=== PATIENT | male | born 1935 | race Caucasian/White ===

== ENCOUNTER 2017-02-26 16:58 | Observation (INO) | payer MEDICARE, OTHER ==
[~2017-02-26] VITALS: Ht 188 cm; Wt 82.1 kg
[2017-02-26] VITALS (9 sets, daily range): BP systolic 97–147; BP diastolic 45–77; PULSE 55–76; RESP 15–20; O2SAT 97–98
[~2017-02-26 16:58] MED LIST: ATOR80TA PO; CLOP75TA3 PO; LISI30TA5 PO; RANI150C4 PO
--- NOTE | 2017-02-26 17:10 | ED.REPORT ---
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 He states that he was cleaning his gutters about 4-5 hours ago, and felt fatigued when he stopped. He then went in to eat and felt lightheaded so he went to lay down. His states that his blood pressure was 115/51, and went down to 80/51 after laying down for 20 minutes. His lisinopril was increased to 40 mg about 10 days ago for his hypertension. Pt denies cough, headache, SOB, chest pain, dysuria, fever, chills, or abdominal pain. He states that he didn't drink much today, but he wasn't thirsty. Nursing Notes Stated Complaint: LOW BP/REF DR WYATT Chief Complaint: Neuro Symptoms/ Deficits Nursing Notes Reviewed: Yes Allergies: Coded Allergies: Penicillins (Verified Allergy, Unknown, rash, 02/26/17) oxycodone (Verified Allergy, Unknown, 02/26/17) metoprolol (Verified Adverse Reaction, Unknown, increased bradycardia, ) Scheduled Atorvastatin (Lipitor) 80 Mg Tablet 80 MG PO DAILY Clopidogrel Bisulfate (Plavix) 75 Mg Tablet 75 MG PO DAILY last dose 05/16 Lisinopril (Lisinopril) 30 Mg Tablet 30 MG PO DAILY Ranitidine (Ranitidine) 150 Mg Capsule 150 MG PO DAILY General Time Seen by MD: 17:09 Chief Complaint Weakness Hx Obtained From: Patient, Spouse Arrived By: Walk-in Sudden in Onset?: Yes Onset Occurred: 1 - 4 hours ago Symptom Duration: Constant Quality: Painful Severity: Current: Mild Severity: Maximum: Moderate Recent Healthcare: Recent doctor visit Similar Sx Previous: No Past Medical History Past Medical History 1. Low back pain 2. GI bleed. 3. History of colonoscopy. Normal colonoscopy. Previously element of diverticulosis. 4. GERD. 5. Hypertension. 6. Diaphragmatic hernia. 7. Hyperlipidemia. 8. Thrombophlebitis. 9. TIA x3 Past Surgical History Colonoscopy Family History Noncontributory Smoking History Never Smoker Social History Other Social History: , Local resident Ambulatory Status Independent Review of Systems Full Review of Systems Constitutional: Reports: Fatigue, Weakness - generalized, Denies: Chills, Fever Respiratory: Denies: Non-productive cough, Prod cough, clear, Shortness of breath Cardiovascular: Denies: Chest pain GI: Denies: Abdominal pain Male: Denies Dysuria Neurologic: Reports: Lightheaded Complete sys rev & neg: except as marked. Physical Exam Vital Signs Vital Signs Date Time Temp Pulse Resp B/P Pulse Ox O2 Delivery O2 Flow Rate FiO2 02/26/17 17:42 15 97/45 98 Room Air 02/26/17 17:03 36.8 65 16 138/75 97 Room Air Initial VS: Reviewed Head / Eyes: Atraumatic, Normocephalic ENT: Mucous membranes moist, Conjunctiva normal Neck: Supple, Full range of motion Abdomen / GI: Soft, Non-tender Extremities: Vascular intact, Neuro intact, No swelling, No tenderness Skin: Warm, Dry, No cyanosis Neurologic: Alert, Oriented, Nonfocal Psychiatric: Mood/affect normal, Behavior normal, Normal thought content General/Constitutional: Awake, Alert Head / Eyes: Atraumatic, Normocephalic, PERRL, EOMI Respiratory / Chest: Atraumatic, Breath sounds NL, Breath sounds = bilat, No respiratory distress Cardiovascular: Heart rate NL, Regular rhythm, Heart sounds NL, No murmurs Heart Rate / Rhythm: Negative: Tachycardia No lower leg edema Neurologic: Oriented X3, Speech NL, No motor deficits, No sensory deficits No facial droop Interpretation & Diagnostics Lab Results Interpretation Result Diagram: 02/26/17 1728 02/26/17 1728 Test 02/26/17 17:28 White Blood Count 11.8th/mm3 (3.8-10.1) Red Blood Count 4.77mil/mm3 (4.40-5.80) Hemoglobin 15.3g/dL (13.8-17.2) Hematocrit 44.2% (41.0-50.0) Mean Corpuscular Volume 92.7fL (81-100) Mean Corpuscular Hemoglobin 32.1pg (27.0-35.0) Mean Corpuscular Hemoglobin Concent 34.6% (32.0-37.0) Red Cell Distribution Width 12.9% (12.3-15.4) Platelet Count 196bil/L (150-400) Neutrophils (%) (Auto) 74.9% (40-74) Lymphocytes (%) (Auto) 16.9% (14-46) Monocytes (%) (Auto) 6.6% (4-12) Eosinophils (%) (Auto) 0.8% (0-5) Basophils (%) (Auto) 0.5% (0-3) Sodium Level 137mEq/L (134-144) Potassium Level 4.3mEq/L (3.5-5.2) Chloride Level 99mEq/L (97-108) Carbon Dioxide Level 21mmol/L (18-29) Blood Urea Nitrogen 30mg/dL (8-27) Creatinine 1.41mg/dL (0.76-1.27) Estimat Glomerular Filtration Rate 52mL/min (>59) Glucose Level 193mg/dL (60-99) Calcium Level 9.4mg/dL (8.5-10.1) Magnesium Level 2.0mg/dL (1.6-2.6) Total Bilirubin 0.7mg/dL (0.0-1.2) Aspartate Amino Transf (AST/SGOT) 28U/L (0-50) Alanine Aminotransferase (ALT/SGPT) 36U/L (0-44) Alkaline Phosphatase 78U/L (25-160) Troponin T < 0.010ug/L (0.0-0.011) Total Protein 7.3g/dL (6.4-8.4) Albumin 4.3g/dL (3.4-5.0) Hold Mae Top Tube Received (Received) ECG Interpretation ECG Interpretation: Sinus rhythm, rate 64 Second degree AV block, type II PRN interval is 254 Time: 17:15 Interpreted by: ED physician X-Ray Chest Interpretation Chest Xray Interpretation: IMPRESSION: No radiographic evidence of acute cardiopulmonary pathology. Dictated by: Zay Santizo M.D. on 02/26/2017 at 17:47 Approved by: Zay Santizo M.D. on 02/26/2017 at 17:48 View: Portable, 1 view Interpretation / Wet Read by: Interpret - Radiologist Re-Eval/Medical Decision Source of Hx: Old records Time of Eval: 19:20 Re-Evaluation/Progress Note: Pt rechecked. Discussed EKG results and plan for admission. Pt understands and agrees with plan. All questions addressed. Consultation #1: Referral / Consult Name: Jamir Montiel MD Consulted With: Cardiology Call Returned at: 19:14 Solar Energy Sales Specialist: Agrees with eval, Agrees with plan Note: Discussed pt's case with senior environmental scientist, Dr. Montiel. He recommends starting a beta emy and will look at EKG. Consultation #2: Referral / Consult Name: Chayo Mejia DO Consulted With: Hospitalist Call Returned at: 19:26 Solar Energy Sales Specialist: Will see patient, Agrees with plan, Accepts admit Note: Discussed pt's case with hospitalist, Dr. Mejia. She accepts admission. Consultation #3: Referral / Consult Name: Jamir Montiel MD Consulted With: Cardiology Call Returned at: 19:32 Solar Energy Sales Specialist: Agrees with eval, Agrees with plan Note: Dr. Montiel called back and stated that it was only a first degree AV block, but still thinks he should be admitted. Counseled Regarding: Diagnosis, Lab results, Need for admission Discharge & Departure Primary Impression: Pre-syncope Additional Impressions: Acute kidney injury Leukocytosis Leukocytosis type: unspecified Qualified Code: D72.829 - Elevated white blood cell count, unspecified Hyperglycemia AV block, 1st degree Disposition: ADMITTED TO HOSPITAL Discharge Condition All VS Reviewed: Yes Condition: Stable Referrals: Shanique Wyatt DO (PCP) Scribe Attestation Portions of this note were transcribed by Laney Tate. I, Dr. John, personally performed the history, physical exam and medical decision-making; I reviewed and confirmed the accuracy of the information in the transcribed note. copies to: Shanique Wyatt Gary R DO Feb 26, 2017 17:10 Laney Tate Feb 26, 2017 18:00
[2017-02-26 17:36] LABS: BASOPHILS % (AUTO) 0.5 % (0-3); EOSINOPHILS % (AUTO) 0.8 % (0-5); MONOCYTES % (AUTO) 6.6 % (4-12); Mean Corpuscular Hemoglobin 32.1 pg (27.0-35.0); Mean Corpuscular Volume 92.7 fL (81-100); NEUTROPHILS % (AUTO) 74.9 % (40-74); Platelet Count 196 bil/L (150-400)
--- NOTE | 2017-02-26 17:50 | DRSVH ---
PROCEDURE: X-RAY CHEST ONE VIEW, PORTABLE ([id number]) INDICATIONS: hypotension TECHNIQUE: One view of the chest was acquired. COMPARISON: , , CHEST 1VW (PORTABLE), 03/09/2012, 17:34. FINDINGS: Surgical changes and devices: None. Lungs and pleura: No pleural effusions or pneumothorax. Lungs are clear. Mediastinum: Mediastinal contours appear normal. Heart size is normal. Bones and chest wall: No suspicious bony lesions. Overlying soft tissues appear unremarkable. IMPRESSION: No radiographic evidence of acute cardiopulmonary pathology. Dictated by: Zay Santizo M.D. on 02/26/2017 at 17:47 Approved by: Zay Santizo M.D. on 02/26/2017 at 17:48
[2017-02-26] MEDS ORDERED: 0.9% Sodium Chloride 1,000 ML IV ONE (17:54)
[2017-02-26 17:58] LABS: TROPONIN T < 0.010 ug/L (0.0-0.011)
[2017-02-26] MEDS ORDERED: LidocaineVisc 2%:Antacid 1:1 10 mL Syringe PO ONE (19:25)
[2017-02-26] MEDS ORDERED: LISI40TA PO (19:49)
[2017-02-26] MEDS ORDERED: Ondansetron 2 mg/mL 2 mL Inj IVPUSH PRN (19:55)
[2017-02-26] MEDS ORDERED: Polyethylene Glycol (PEG) 17 Gm Powder PO PRN (19:55)
[2017-02-26] MEDS ORDERED: Alum-Mag Hydrox-Simeth 30 mL Suspension PO PRN (19:55)
--- NOTE | 2017-02-26 21:12 | PCM.HPMED ---
Subjective Date of Service Feb 26, 2017 Primary Provider: Admitting Physician: Amanda Alexander MD Primary Care Physician: Shanique Wyatt DO Attending Physician: Amanda Alexander MD Admit Status: From the Emergency Department, 23-Hour Observation Chief Complaint: Near syncope. History of Present Illness: Radha Patel is a 81-year-old male with a past medical history significant for hypertension, hyperlipidemia, TIA 3 on Plavix, and GERD who presented to [facility] emergency Department complaining of lightheadedness. The patient reports he was outside all day cleaning his gutters for approximately 5-6 hours. He reports that he did not drink any fluid during this time. He then went inside and sat down to have dinner with his when he began to feel lightheaded and as though he may pass out. He immediately stopped eating and went into the bedroom and laid down. Per the ER physician, his states that his blood pressure was 115/51 and went down to 80/51 after laying down for 20 minutes. He then went to his PCPs office who sent him to the ED. His lisinopril was increased to 40 mg about 10 days ago for his hypertension. He denies headache, vision changes, sore throat, cough, chest pain, shortness of breath, abdominal pain, nausea, vomiting, fever, chills, dysuria diarrhea, constipation. Vital signs in the ER: Temperature 36.8. Pulse 65. Respiratory rate 16. Blood pressure 138/75. Pulse ox 97% room air. He received a GI cocktail and 1 L of NS in the ED. PCP is Dr. Shanique Wyatt. Review of Systems: A comprehensive review of systems was conducted with the patient and found to be negative except as above in the History of Present Illness. . Allergies Coded Allergies: Penicillins (Verified Allergy, Unknown, rash, 02/26/17) oxycodone (Verified Allergy, Unknown, 02/26/17) metoprolol (Verified Adverse Reaction, Unknown, increased bradycardia, ) Home Medications Atorvastatin 80 mg daily at bedtime. Clopidogrel 75 mg daily at bedtime. Lisinopril 40 mg daily at bedtime. Ranitidine 150 mg daily at bedtime. . PMH 1. 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 2. GERD. 3. Hypertension. 4. Hyperlipidemia. 5. TIA x3. 6. DJD. . Surgical History 1. Colonoscopy. 2. Lumbar L4-L5? surgery. 3. Cholecystectomy. 4. Bilateral cataract extraction. 5. Bilateral knee arthroscopy. . Family History Mother who from unknown cancer at 65 years old. Father who of old age. Brother who of prostate cancer at 70 years old. Brother with AICD who of a CVA in his 90's. . Social History Hx Alcohol Use: No Hx Substance Use: No Hx Tobacco Use: Yes Smoking Status: Former Smoker (1 PPD x 6 years) Additional Information The patient is x 34 years. He has previously . He has two daughters who are healthy. 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 He was born in [place]. . Exam Vital Signs Vital Sign - Last Date Time Temp Pulse Resp B/P Pulse Ox O2 Delivery O2 Flow Rate FiO2 02/26/17 19:33 55 17 119/50 98 Room Air 126/56 132/58 02/26/17 17:03 36.8 Exam General: Older gentleman lying in bed and in no acute distress, well-developed, well-nourished, appropriately interactive area HEENT: Normocephalic, atraumatic. External ears without defect. Pupils equal, round, and reactive to light. Anicteric sclerae, moist conjunctivae, and no lid lag. Oropharynx free of erythema and cobble stoning with moist mucosa. Neck: Supple with full range of motion. No jugular venous distension. No bruits. No lymphadenopathy or thyromegaly. Cardiovascular: Regular rate and rhythm without murmurs, rubs, or gallops appreciated Pulmonary: Clear to auscultation bilaterally without crackles, wheezes, or rhonchi. Normal respiratory effort with no use of accessory muscles. Abdomen: Soft, nontender, nondistended, bowel sounds present. No hepatosplenomegaly or masses appreciated. Extremities: No clubbing, cyanosis, or edema. Skin: Normal temperature, turgor, and texture; no rash, ulcers, or subcutaneous nodules appreciated. Neurological: Cranial nerves grossly intact. Normal muscle strength, tone, and bulk. Reflexes, coordination, and sensory function within normal limits. No known gait impairment. Psychiatric: Normal mood and affect. Alert and oriented to person, place, and time. . Lab and Diagnostics Labs Item Value Date Time Calcium Level 9.4 mg/dL 02/26/17 1728 Magnesium Level 2.0 mg/dL 02/26/17 1728 Total Bilirubin 0.7 mg/dL 02/26/17 1728 Aspartate Amino Transf (AST/SGOT) 28 U/L 02/26/17 1728 Alanine Aminotransferase (ALT/SGPT) 36 U/L 02/26/17 1728 Alkaline Phosphatase 78 U/L 02/26/17 1728 Troponin T < 0.010 ug/L 02/26/17 1728 Total Protein 7.3 g/dL 02/26/17 1728 Albumin 4.3 g/dL 02/26/17 1728 Result Diagram: 02/26/17 1728 02/26/17 172 X-Rays, CTs and MRIs X-RAY CHEST ONE VIEW, PORTABLE IMPRESSION: No radiographic evidence of acute cardiopulmonary pathology. Dictated by: Zay Santizo M.D. on 02/26/2017 at 17:47 . 12-lead ECG EKG: Sinus rhythm, heart rate 64, normal axis, second-degree AV block type I with FL interval of 254 ms with several dropped beats, otherwise normal intervals, normal R-wave progression, no pathological Q waves or acute ischemic changes such as ST elevation or depression. . Assessment & Plan Radha Patel is a 81-year-old male with a past medical history significant for hypertension, hyperlipidemia, TIA 3 on Plavix, and GERD who presented to [facility] emergency Department complaining of lightheadedness. 1. Near syncope, present on admission. Active. - Patient presented after a near syncopal episode. No history of seizures. - Differential diagnosis includes: Likely cardiac etiology from second-degree heart block type I versus hypotension secondary to dehydration and recent antihypertensive adjustment. - Ordered echocardiogram, pending. - Ordered orthostatic blood pressures, pending. - Ordered urinalysis with culture if indicated, pending. We will await results prior to initiation of antibiotics. - Electrolytes within normal limits. - Ordered TSH, pending. - EKG revealed second-degree heart block type I with FL interval of 254 ms per resident physician, Dr. Montiel, as above. - Continue to monitor on telemetry. - Received 1 L of NS in the ED. Continue IV fluid hydration with NS at 100 mL/ hr. - Ordered cardiology consult, Dr. Alexander, for day team to discuss tomorrow. 2. Acute kidney injury, present on admission. Active. - Likely secondary to prerenal azotemia from dehydration. - Patient's baseline creatinine 0.9. Initial creatinine 1.41. - Avoid nephrotoxins. - Ordered IV fluid hydration with NS at 100 mL/hr. Chronic problems: 3. GERD, present on admission. Stable. - Continue ranitidine 150 mg daily at bedtime. 4. Hypertension, present on admission. Stable. - Held lisinopril for now. May restart at lower dose tomorrow if he becomes hypertensive. 5. Hyperlipidemia, present on admission. Stable. - Continue atorvastatin 80 mg daily at bedtime. 6. History of TIA and thrombophlebitis. - Continue clopidogrel 75 mg daily at bedtime. PRN antiemetics: Zofran and Maalox. PRN bowel regimen: Senna and MiraLAX. PRN analgesics: Tylenol. Patient is admitted under observation status with expected length of stay less than 2 midnights due to severity of presenting symptoms, risk of adverse event, and complexity of treatment plan. . VTE Prophylaxis: Sub-Q Heparin (Unfractionated), SCDs Resuscitation Status: CPR: Attempt Resuscitation Attending Statement The patient was seen and examined together with house staff on 02/26/2017 and I agree with the history, exam and plan as outlined in the note above. copies to: Shanique Wyatt [place] M DO Feb 26, 2017 20:00 Chayo Mejia DO Feb 27, 2017 04:59
[2017-02-26] MEDS: 0.9% Sodium Chloride 1,000 ML IV SCH (21:18)
[2017-02-26 21:51] LABS: APPEARANCE,URINE CLEAR (CLEAR,HAZY); COLOR,URINE YELLOW (YELLOW); OCCULT BLOOD,URINE NEGATIVE (NEGATIVE); UROBILINOGEN,URINE NORMAL (NORMAL)
[2017-02-27] MEDS: Heparin 5,000 Unit/mL Inj SUBQ SCH ×3 (01:35→16:30)
[2017-02-27 01:40] VITALS: BP 122/67; PULSE 57; RESP 20; O2SAT 98
--- NOTE | 2017-02-27 03:32 | NUR ---
Admit Pt admitted to [facility] Rm 1028 from ER at 2044. Pt alert and oriented x4, Pt walked to bed with SBA due to previous symptoms of lightheadedness. Pt denies pain or nausea. Pt has history of chronic right LE weakness. AVENDAÑO. Orthostats done and negative. Pt placed on tele- SB 50s, 1st degree AV block with PACs. Pt placed on heart healthy diet. NS infusing at 100ml/hr. Pt watched the orientation video. Explained to pt to use call light to get up for safety. Cont to monitor.
[2017-02-27 05:25] VITALS: BP 124/69; PULSE 55; RESP 20; O2SAT 97
[2017-02-27 07:31] LABS: BASOPHILS % (AUTO) 0.9 % (0-3); EOSINOPHILS % (AUTO) 2.8 % (0-5); MONOCYTES % (AUTO) 8.2 % (4-12); Mean Corpuscular Hemoglobin 32.6 pg (27.0-35.0); Mean Corpuscular Volume 94.4 fL (81-100); NEUTROPHILS % (AUTO) 56.6 % (40-74); Platelet Count 167 bil/L (150-400)
[2017-02-27 08:00] VITALS: BP 118/66; PULSE 54; RESP 18; O2SAT 96
[2017-02-27 08:06] LABS: Magnesium 2.1 mg/dL (1.6-2.6)
[2017-02-27] MEDS: 0.9% Sodium Chloride 1,000 ML IV SCH ×2 (08:38→15:55)
--- NOTE | 2017-02-27 09:10 | NUR ---
Social Work: Initial Assessment D: EMR reviewed. Please see Initial Assessment linked to this note for more information. Pt is a 81 year old male admitted [facility] for presyncope first degree, AV block per H&P. Pt's insurance is Medicare and [employer]. PCP is Shanique Wyatt DO. No SW orders have been received at this time. SW met with pt at bedside to conduct initial assessment. Pt was alert and oriented x3. SW explained role and wrote phone number on white board. SW provided [facility] Discharge Planning Checklist and encouraged pt to contact SW for any discharge planning questions. Pt lives at home with spouse in [place]. Pt is independent with all ADLs at baseline. Pt uses no DME at baseline. Pt drives. Pt has no HH or SNF history. Pt has no LTC or VA benefits. Pt has no DPOA on file, declined information related to this. Pt is likely to d/c home with spouse to transport via POV. SW will continue to follow. A: Pt who is independent at baseline and has the capacity for self-care. P: Pt anticipated to discharge home with spouse to transport via POV. No SW needs identified, no MD orders received at this time. SW will continue to follow for needs until time of discharge. SKYLER Mendoza Addendum: 02/27/17 at 0912 by YUE LOVE SS Amended: Links added.
[2017-02-27 09:13] VITALS: PULSE 51
--- NOTE | 2017-02-27 10:20 | PCM.PNMED ---
Subjective Date of Service Feb 27, 2017 Subjective Patient seen and examined. No complaints. Vitals stable. Exam Vital Signs Vital Sign - Last Date Time Temp Pulse Resp B/P Pulse Ox O2 Delivery O2 Flow Rate FiO2 02/27/17 09:13 51 02/27/17 08:00 36.6 18 118/66 96 Room Air Intake and Output 02/26/17 02/26/17 02/27/17 Cumulative From/Thru 15:00 23:00 07:00 02/26/17 17:03 - 02/27/17 05:20 Intake Total 1000 ml 708 ml 1708 ml Balance 1000 ml 708 ml 1708 ml IV Total 1000 ml 708 ml 1708 ml Exam General: Older gentleman sitting up in bed and in no acute distress, well- developed, well-nourished, appropriately interactive area Neck: Supple with full range of motion. No jugular venous distension. No bruits. No lymphadenopathy or thyromegaly. Cardiovascular: Regular rate and rhythm without murmurs, rubs, or gallops appreciated Pulmonary: Clear to auscultation bilaterally without crackles, wheezes, or rhonchi. Normal respiratory effort with no use of accessory muscles. Abdomen: Soft, nontender, nondistended, bowel sounds present. No hepatosplenomegaly or masses appreciated. Extremities: No clubbing, cyanosis, or edema. Skin: Normal temperature, turgor, and texture; no rash, ulcers, or subcutaneous nodules appreciated. . Lab and Diagnostics Result Diagram: 02/27/17 0657 02/27/17 0657 X-Rays, CTs and MRIs X-RAY CHEST ONE VIEW, PORTABLE IMPRESSION: No radiographic evidence of acute cardiopulmonary pathology. Dictated by: Zay Santizo M.D. on 02/26/2017 at 17:47 . 12-lead ECG EKG: Sinus rhythm, heart rate 64, normal axis, second-degree AV block type I with ME interval of 254 ms with several dropped beats, otherwise normal intervals, normal R-wave progression, no pathological Q waves or acute ischemic changes such as ST elevation or depression. . Assessment & Plan Radha Patel is a 81-year-old male with a past medical history significant for hypertension, hyperlipidemia, TIA 3 on Plavix, and GERD who presented to [facility] emergency Department complaining of lightheadedness. #. Near syncope, present on admission. Active. - Patient presented after a near syncopal episode. No history of seizures. - Differential diagnosis includes: Likely cardiac etiology from second-degree heart block type I versus hypotension secondary to dehydration and recent antihypertensive adjustment. - Ordered echocardiogram, pending. - Electrolytes within normal limits. - TSH: Subclinical hypothyroidism - EKG revealed second-degree heart block type I with ME interval of 254 ms per international logistics manager, Dr. Montiel, as above. - Continue to monitor on telemetry. - Received 1 L of NS in the ED. Continue IV fluid hydration with NS at 100 mL/ hr. - Dr. Alexander informed, to see the patient. #. Acute kidney injury, present on admission. Resolving - Likely secondary to prerenal azotemia from dehydration. - Patient's baseline creatinine 0.9. Initial creatinine 1.41. - Avoid nephrotoxins. - on IV fluid hydration with NS at 100 mL/hr. # Subclinical hypothyroidism - TSH elevated > 6.0, T4 lower limit of normal - will start on levothyroxine 25 mcg daily - outpatient follow up Chronic problems: #. GERD, present on admission. Stable. - Continue ranitidine 150 mg daily at bedtime. #. Hypertension, present on admission. Stable. - Held lisinopril for now. will restart once tyler resolves completely #. Hyperlipidemia, present on admission. Stable. - Continue atorvastatin 80 mg daily at bedtime. $. History of TIA and thrombophlebitis. - Continue clopidogrel 75 mg daily at bedtime. PRN antiemetics: Zofran and Maalox. PRN bowel regimen: Senna and MiraLAX. PRN analgesics: Tylenol. Patient is admitted under observation status with expected length of stay less than 2 midnights due to severity of presenting symptoms, risk of adverse event, and complexity of treatment plan. . VTE Prophylaxis: Sub-Q Heparin (Unfractionated), SCDs VTE Mechanical Devices: Intermittant Pneumatic CD Resuscitation Status: CPR: Attempt Resuscitation Time spent 35 mins Craig Esteves MD Feb 27, 2017 10:20
--- NOTE | 2017-02-27 10:41 | NUR ---
Case Management- MILES explained and signed/ timed by patient. Julia Dickinson RN, CCM
--- NOTE | 2017-02-27 13:14 | CONS ---
[address] [address] CONSULTATION REPORT PATIENT: RADHA LU : 1935 MR#: [id number] ADMIT: 02/26/2017 JOB ID: [id number] CARDIOLOGY CONSULTATION: DATE OF SERVICE: 02/27/2017 CHIEF COMPLAINT: I was asked by the hospitalist team to consult on this patient, given admission with presyncope. HISTORY OF PRESENT ILLNESS: This patient is 81-year-old man with past medical history significant for hypertension, hyperlipidemia. He has a history of TIAs and is on Plavix for this along with a statin. He is generally fairly active. 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 No problems with that, no chest pain, no shortness of breath. It was cool outside. He did not have much to drink, but finally quit for the day, went into eat dinner, was sitting down to eat dinner and suddenly felt near syncopal. His had him lie down. She checked his blood pressure which was low. He continued to lie down. She came back in to check the blood pressure; again was also felt to be low. Therefore, he was taken in the hospital. In the hospital, his initial blood pressure was low at 97/45. Orthostatics were negative. Heart rates were in the 50s to 60s. I am not sure if any fluids were given; however, the on-call clerk checker recommended starting beta emy. I am not sure if this was done. He has never had problems like this before. In general, he is quite active. Never had problems with chest pain, shortness of breath, orthopnea, PND, lower extremity edema. Does notice palpitations and had no problems with presyncope/syncope in the past. However, he does notice some orthostatic symptoms when he changes positions. This is not uncommon for him and he is aware of these potential symptoms. Currently is doing well. He denies any chest pain, shortness of breath, lightheadedness, dizziness. He had negative troponin. His TSH is mildly elevated. Free T4 is normal. PAST MEDICAL HISTORY/PROBLEM LIST: 1. History of TIAs. 2. 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 3. GERD. 4. Hypertension. 5. Hyperlipidemia. 6. DJD. MEDICATIONS: Outpatient medications include: 1. Atorvastatin 80 mg q.h.s. 2. Clopidogrel 75 daily. 3. Lisinopril 40 daily. 4. Ranitidine 150 mg q.h.s. ALLERGIES: 1. PENICILLIN. 2. OXYCODONE. 3. METOPROLOL, which apparently caused increased bradycardia. SOCIAL HISTORY: Former smoker. No significant alcohol use. FAMILY HISTORY: Brother had an AICD, history of stroke. He is not clear why the AICD was placed but his brother had a history of coronary disease. REVIEW OF SYSTEMS: Overall health: No fevers, chills, night sweats, or weight loss. GI: No problems with ulcers or blood in his stool. : Denies dysuria, hematuria. Pulmonary: No increased shortness of breath. Cardiac: As per HPI. Musculoskeletal: No acute joint issues. Derm: No acute issues or rashes, skin breakdown. Heme: No bruising or bleeding. Neuro: History of chronic headaches. History of TIAs. No acute vision changes. ENT: No acute hearing changes, difficulty swallowing. All other review of systems on a 12-point review system is negative. PHYSICAL EXAMINATION: Blood pressure is 141/76, heart rate 58; range of 50s to mid 60s. Sats are 97% on room air. General: In no acute distress. Speaking in full sentences without apparent shortness of breath. Head and neck exam: Normocephalic, atraumatic. Neck: No JV distention. Heart exam: Regular rate and rhythm. I do not appreciate murmurs, gallops, rubs appreciated. Lungs sound clear. Back: No CVA tenderness to palpation. Abdomen is soft, nontender. Extremities: Warm, no appreciable edema. 2+ distal pulses. Skin without breakdown appreciated. Neurologic: Alert and oriented x3. Sensory and gait not tested. Psych: Appropriate mood and affect. Ophthmo: Optical vision grossly intact. ENT: hearing intact. Mucous membranes moist. DIAGNOSTIC TESTING: EKG to my review shows sinus rhythm with supraventricular bigeminy. I went over telemetry and there were no significant pauses overnight. At 4:58 a.m., there was what looked like PAC couplet causing a 2.55 second pause,when the patient is sleeping. LABORATORY DATA: Sodium 139, potassium 4.7, chloride and bicarb 103 and 22, respectively. BUN and creatinine 26 and 1.01. Hematology shows a white count 6.7, H and H 14 and 40.6, platelets 167,000. IMAGING: Chest x-ray that shows no acute cardiopulmonary issues. IMPRESSION: This patient had an episode of near syncope. He has been out working all day and admits to not drinking much, although it was not warm and he did not feel thirsty. His blood pressure was low at home and in fact it his first measurement here was low; it is now normalized. He has some atrial bigeminy noticed and normal QRS interval and a prolonged MN interval. PLAN: 1. I think getting an echo is fine and we can see how that does. 2. As he has not had any symptoms like this in the past and we are not seeing any evidence of heart block on our telemetry, we can get the echo, we can have him walk around and make sure he is feeling well. If all this looks good and the patient feels well, we can do a monitor. If there is any additional concerns about heart rate response to activities, we could have him walk on a treadmill but will see how things unfold during the day. 60 minutes was spent with the patient reviewing his studies, discussing symptoms, reviewing telemetry and making recommendations MTDD
[2017-02-27 14:52] VITALS: BP 120/55; PULSE 50; RESP 18; O2SAT 96
[2017-02-27] MEDS ORDERED: LEVO25TA5 PO (15:16)
--- NOTE | 2017-02-27 15:17 | PCM.DIMED ---
Discharge Instructions Date of Service Feb 27, 2017 Dates of Hospitalization Feb 26, 2017 at 19:52 Discharge Diagnosis Discharge Diagnosis Pre syncope likely 2/2 dehydration Diet Discharge Diet: Heart Healthy Activity Discharge Activity: Limited until seen by PCP Call your provider Call your provider for: Chest pain, Excessive diarrhea Patient Instructions Follow-up with PCP in: 1 week (For an event/holter monitor , and hypothyroidism ) Craig Esteves MD Feb 27, 2017 15:17
--- NOTE | 2017-02-27 15:22 | DRSVH ---
Formerly [facility] [address] [place] [address] Echocardiogram Report Name: RADHA LU LStudy Viet e: 02/27/2017 Height: 74 in Hospital Exam Location: [facility] Weight: 181 lb Gender: Male BSA: 2.1 m2 : 1935 Age: 81 yrs BP: 128/69 mmHg Reason For Study: Light-Headedness/Pre-Syncope Ordering Physician: Performed By: Jazmin Adams Referring Physician: HOSPITALIST [facility] Interpretation Summary Normal sinus rhythm with occasional PAC's. Normal LV size, wall thickness; wall motion and LV systolic function. EF is 65-70%. Aortic sclerosis without stenosis. Otherwise no significant valvular abnormalities. Compared to prior study, previously observed bradycardia (with heart rates 47 -48 bpm ) is no longer seen. PAC's are new. Otherwise no changes have occurred. Procedure: A two-dimensional transthoracic echocardiogram with color flow and Doppler was performed. The study quality was technically difficult. Comparison is made with the echocardiogram of 03/10/2012. The heart rate ranged between 50-60 bpm during the study. Left Ventricle: The left ventricle is normal in size, wall thickness, and systolic function without any focal wall motion abnormalities. A false chord is noted (normal variant). The ejection fraction is estimated to be 65-70%. Right Ventricle: The right ventricle is normal in size, thickness and function. Atria: The left atrial size is normal. The right atrium is mildly dilated. The interatrial septum is intact with no evidence for an atrial septal defect. Mitral Valve: The mitral valve is normal. There is trace mitral regurgitation. Aortic Valve: The aortic valve is not well visualized. The aortic valve is mildly calcified. There is no aortic valve stenosis. No aortic regurgitation is present. Tricuspid Valve: The tricuspid valve is normal. There is a trace or physiologic amount of tricuspid regurgitation. Pulmonary artery pressures cannot be estimated because of the lack of a measurable TR jet velocity. Pulmonic Valve: The pulmonic valve is not well visualized. Great Vessels: The aortic root is normal size. The ascending aorta could not be visualized. The aortic arch is normal in size. The pulmonary is not well visualized. The IVC is of normal diameter and collapses greater than 50% with a sniff. This suggests a low right atrial pressure of 3 mm Hg. Pericardium/ Pleura There is no pericardial effusion. There is no pleural effusion. MMode/2D Measurements & Calculations LVIDd: 3.8 cm LVIDs: 2.7 cm LA A2 area: 18.9 cm FS: 30.5 % LA A4 area: 19.4 cm EPSS: 0.23 cm LA length (vol): 5.6 cm LVPWd: 0.85 cm LA vol: 55.1 ml LA vol index: 26.5 ml/m IVC diam: 1.6 cm RA long axis: 6.0 cm LVOT diam: 2.0 cm RA area: 21.3 cm AoV Openin.8 cm RA vol: 64.2 ml Ao root diam: 3.6 cm RA : 30.8 ml/m2 asc Aorta Diam: 2.5 cm Ao Arch Diam (Prox Trans): 2.8 cm LV smith. diameter/BSA (cm/m^2): 1.8 LV sys. diameter/BSA (cm/m^2): 1.3 RVD1 (basal): 5.0 cm TAPSE: 3.6 cm Doppler Measurements & Calculations Ao V2 max: 175.8 cm/sec MV E max juanjo: 74.7 cm/sec Ao max P.4 mmHg MV A max juanjo: 63.7 cm/sec Ao mean P.5 mmHg MV P1/2t: 92.8 msec LVOT Max Juanjo: 132.7 cm/sec KEVIN(I,D): 2.7 cm sev ratio: 0.83 MV E/A: 1.2 MV dec time: 0.31 sec Med Peak E' Juanjo: 8.7 cm/sec E/E' med: 8.6 Lat Peak E' Juanjo: 10.8 cm/sec E/E' lat: 6.9 E/e' average: 7.7 MV P1/2t max juanjo: 75.2 cm/sec Ao V2 mean: 130.7 cm/sec MVA(P1/2t): 2.4 cm2 Ao V2 VTI: 37.7 cm KEVIN(V,D): 2.4 cm2 LV V1 max P.1 mmHg KEVIN indexed to BSA (cm^2/m^2): 1.3 LV V1 VTI: 31.5 cm Reading Physician:03:21 PM
--- NOTE | 2017-02-27 15:27 | PCM.DC.MED ---
Discharge Summary Date of Service Feb 27, 2017 Dates of Hospitalization Date of Hospital Admission Feb 26, 2017 at 19:52 Date of Discharge: Feb 27, 2017 Providers: Admitting Physician: Chayo Mejia DO Primary Care Physician: Shanique Wyatt DO Attending Physician: Zay Dillon MD Diagnosis at Time of Discharge Diagnosis at Time of Discharge Pre syncope Procedures XRay, CTs & MRIs X-RAY CHEST ONE VIEW, PORTABLE IMPRESSION: No radiographic evidence of acute cardiopulmonary pathology. Dictated by: Zay Santizo M.D. on 02/26/2017 at 17:47 . ECG 12 Lead EKG: Sinus rhythm, heart rate 64, normal axis, second-degree AV block type I with IL interval of 254 ms with several dropped beats, otherwise normal intervals, normal R-wave progression, no pathological Q waves or acute ischemic changes such as ST elevation or depression. . Cardiac Echo Impression Interpretation Summary Normal sinus rhythm with occasional PAC's. Normal LV size, wall thickness; wall motion and LV systolic function. EF is 65-70%. Aortic sclerosis without stenosis. Otherwise no significant valvular abnormalities. Compared to prior study, previously observed bradycardia (with heart rates 47 -48 bpm ) is no longer seen. PAC's are new. Otherwise no changes have occurred. Brief History Radha Patel is a 81-year-old male with a past medical history significant for hypertension, hyperlipidemia, TIA 3 on Plavix, and GERD who presented to [facility] emergency Department complaining of lightheadedness. The patient reports he was outside all day cleaning his gutters for approximately 5-6 hours. He reports that he did not drink any fluid during this time. He then went inside and sat down to have dinner with his when he began to feel lightheaded and as though he may pass out. He immediately stopped eating and went into the bedroom and laid down. Per the ER physician, his states that his blood pressure was 115/51 and went down to 80/51 after laying down for 20 minutes. He then went to his PCPs office who sent him to the ED. His lisinopril was increased to 40 mg about 10 days ago for his hypertension. He denies headache, vision changes, sore throat, cough, chest pain, shortness of breath, abdominal pain, nausea, vomiting, fever, chills, dysuria diarrhea, constipation. Vital signs in the ER: Temperature 36.8. Pulse 65. Respiratory rate 16. Blood pressure 138/75. Pulse ox 97% room air. He received a GI cocktail and 1 L of NS in the ED. PCP is Dr. Shanique Wyatt. Hospital Course Radha Patel is a 81-year-old male with a past medical history significant for hypertension, hyperlipidemia, TIA 3 on Plavix, and GERD who presented to [facility] emergency Department complaining of lightheadedness. #. Near syncope, present on admission. Resolved - Patient presented after a near syncopal episode. No history of seizures. - Echo as noted above - Electrolytes within normal limits. - TSH: Subclinical hypothyroidism - EKG revealed bigemny - Follow up outpatient for a holter monitor. #. Acute kidney injury, present on admission. Resolved - Likely secondary to prerenal azotemia from dehydration. - Initial creatinine 1.41. Normalized - Avoid nephrotoxins. # Subclinical hypothyroidism - TSH elevated > 6.0, T4 lower limit of normal - will start on levothyroxine 25 mcg daily - outpatient follow up Chronic problems: #. GERD, present on admission. Stable. - Continue ranitidine 150 mg daily at bedtime. #. Hypertension, present on admission. Stable. - continue home lisinopril on dc #. Hyperlipidemia, present on admission. Stable. - Continue atorvastatin 80 mg daily at bedtime. $. History of TIA and thrombophlebitis. - Continue clopidogrel 75 mg daily at bedtime. . Exam Vital Signs (Last) Date Time Temp Pulse Resp B/P Pulse Ox O2 Delivery O2 Flow Rate FiO2 02/27/17 14:52 36.9 50 18 120/55 96 Room Air Test 02/26/17 17:28 02/26/17 21:30 02/27/17 06:57 Total Bilirubin 0.7mg/dL (0.0-1.2) Aspartate Amino Transf (AST/SGOT) 28U/L (0-50) Alanine Aminotransferase (ALT/SGPT) 36U/L (0-44) Alkaline Phosphatase 78U/L (25-160) Troponin T < 0.010ug/L (0.0-0.011) Total Protein 7.3g/dL (6.4-8.4) Albumin 4.3g/dL (3.4-5.0) Thyroid Stimulating Hormone (TSH) 6.410uIU/mL (0.450-4.500) Hold Mae Top Tube Received (Received) Urine Color Yellow (YELLOW) Urine Appearance Clear (CLEAR,HAZY) Urine pH 6.0 (5.0-8.0) Urine Specific [place] 1.020 (1.003-1.035) Urine Protein Negativemg/dL (NEG,TRACE) Urine Glucose (UA) Negativemg/dL (NEGATIVE) Urine Ketones Negativemg/dL (NEGATIVE) Urine Occult Blood Negative (NEGATIVE) Urine Nitrite Negative (NEGATIVE) Urine Bilirubin Negative (NEGATIVE) Urine Urobilinogen Normalmg/dL (NORMAL) Urine Leukocyte Esterase Negative (NEGATIVE) Urine RBC 0-2/hpf (0-2) Urine WBC 0-5/hpf (0-5) Urine Epithelial Cells Occasional/hpf (NONE-MOD) Urine Crystals None seen (NONE SEEN) Urine Bacteria None/hpf (NONE-FEW) Urine Hyaline Casts Occasional/lpf (NONE) Urine Granular Casts None seen (NONE SEEN) Urine Waxy Casts None seen (NONE SEEN) Urine Red Blood Cell Casts None seen (NONE SEEN) Urine White Blood Cell Casts None seen (NONE SEEN) Urine Mucus None seen (None Seen) Urine Trichomonas None seen (NONE SEEN) Urine Yeast None (NONE SEEN) Urinalysis Comment None Urine Culture Reflexed Not indicated White Blood Count 6.7th/mm3 (3.8-10.1) Red Blood Count 4.30mil/mm3 (4.40-5.80) Hemoglobin 14.0g/dL (13.8-17.2) Hematocrit 40.6% (41.0-50.0) Mean Corpuscular Volume 94.4fL (81-100) Mean Corpuscular Hemoglobin 32.6pg (27.0-35.0) Mean Corpuscular Hemoglobin Concent 34.5% (32.0-37.0) Red Cell Distribution Width 13.0% (12.3-15.4) Platelet Count 167bil/L (150-400) Neutrophils (%) (Auto) 56.6% (40-74) Lymphocytes (%) (Auto) 31.4% (14-46) Monocytes (%) (Auto) 8.2% (4-12) Eosinophils (%) (Auto) 2.8% (0-5) Basophils (%) (Auto) 0.9% (0-3) Sodium Level 139mEq/L (134-144) Potassium Level 4.7mEq/L (3.5-5.2) Chloride Level 103mEq/L (97-108) Carbon Dioxide Level 23mmol/L (18-29) Blood Urea Nitrogen 26mg/dL (8-27) Creatinine 1.01mg/dL (0.76-1.27) Estimat Glomerular Filtration Rate 76mL/min (>59) Glucose Level 126mg/dL (60-99) Calcium Level 8.8mg/dL (8.5-10.1) Magnesium Level 2.1mg/dL (1.6-2.6) Free Thyroxine 1.15ng/dL (0.82-1.77) Discharge Medications Discharge Medications Atorvastatin (Lipitor) 80 Mg Tablet 80 MG PO HS (Reported) Clopidogrel Bisulfate (Plavix) 75 Mg Tablet 75 MG PO HS (Reported) Levothyroxine (Levothyroxine) 25 Mcg Tablet 25 MCG PO DAILYAC Prescribed by: ZAY DILLON MD Lisinopril (Lisinopril) 40 Mg Tablet 40 MG PO HS (Reported) Ranitidine (Ranitidine) 150 Mg Capsule 150 MG PO HS (Reported) Followup Plan Discharge Diet: Heart Healthy Discharge Activity: Limited until seen by PCP Follow-up with PCP in: 1 week (For an event monitor , and hypothyroidism ) Time spent 35 mins Zay Dillon MD Feb 27, 2017 15:27
--- NOTE | 2017-02-27 15:34 | NUR ---
Social Work- Discharge Data: EMR reviewed. Pt is on day 1 of hospitalization. D/C orders are active. Pt is independent at baseline. Pt to d/c home with to transport via POV. No discharge needs identified. Assessment: Pt who is independent at baseline. Plan: Pt to d/c home with spouse to transport via POV. No discharge needs. Esha Pagan MSW
[2017-02-27 16:55] VITALS: BP 131/63; PULSE 56; RESP 18; O2SAT 98
--- NOTE | 2017-02-27 17:19 | NUR ---
Discharge Pt to discharge to home with his ; A&Ox3, ind in room and hallway with steady gait; 1 IV Access discontinued, no c/o CP or SOB. Pt has Rx for Levothyroxine and Care Notes on medication, education on medication and side effects, encouraged to call PCP or go to ED for excessive diarrhea or CP, to take all medications and prescribed and to start Levothyroxine in the AM 1 hour before his morning meal and to take his evening medications tonight before bedtime, follow heart healthy diet, limit activity until seen by PCP within 1 week, to which pt states understanding. All personal belongings with pt at time of discharge. Pt amb off unit with RN.
== END 2017-02-27 16:45 | disposition home or self-care (01) ==
LOC: SED 16:58 → OSC 19:52
PROVIDERS: ADMIT Internal Medicine; ATTEND Internal Medicine
DX: N17.9 Acute kidney failure, unspecified (principal); R55 Syncope and collapse; E03.9 Hypothyroidism, unspecified; D72.829 Elevated white blood cell count, unspecified; K21.9 Gastro-esophageal reflux disease without esophagitis; I10 Essential (primary) hypertension; E78.5 Hyperlipidemia, unspecified; I44.0 Atrioventricular block, first degree; M54.5 Low back pain; M19.90 Unspecified osteoarthritis, unspecified site; Z86.73 Personal history of transient ischemic attack (TIA), and cerebral infarction without residual deficits; Z79.02 Long term (current) use of antithrombotics/antiplatelets; Z88.0 Allergy status to penicillin; Z88.8 Allergy status to other drugs, medicaments and biological substances; Z87.891 Personal history of nicotine dependence
CPT/HCPCS: 36415; 71010; 80048; 80053; 81000; 82948; 83036; 83735; 84439; 84443; 84484; 85025; 93005; 96360; 96372; 99285; C8929; G0378; J1644; J7030